=== PATIENT | female | born 1965 | race Caucasian/White ===

== ENCOUNTER 2024-02-06 15:46 | Emergency (ER) | payer MEDICARE, SELFPAY ==
[2024-02-06 15:49] VITALS: BP 118/84; PULSE 88; RESP 16; TEMP 37.4; O2SAT 96
[2024-02-06 15:51] VITALS: BMI 39.1
--- NOTE | 2024-02-06 17:36 | EDS_ITS ---
HPI HPI - GI History of Present Illness Chief Complaint: Abd Pain Informant: patient Abdominal Pain/Flank Pain Onset: Days (4) Context: Gradual Onset Timing: Continuous Quality: Stabbing Location: RLQ Worsened by: Movement (Bending, sitting) Relieved by: Nothing Nausea/Vomiting/Emesis GI Symptom: Positive for Nausea and Vomiting Quality: Positive for Nonbilious; Negative for Blood streaks, Coffee ground or Hematemesis Diarrhea/Melena/Hematochezia GI Symptom: Positive for Diarrhea; Negative for Melena or Hematochezia Associated Symptoms Associated Symptoms: Negative for Dysuria, Frequency or Hematuria Narrative Narrative: Patient presents with abdominal pain that has been getting worse over the last 4 days. Patient states it is gradually gotten worse. Patient states that this became severe over the past 2 days. Patient states her pain is mainly over the right lower abdomen. Patient states it is worse with bending and with sitting. Patient also states that when she sits to urinate she has pressure and some hesitancy. Patient denies any dysuria however. Patient does admit to some nausea, vomiting, and decreased appetite. Patient denies any hematemesis or coffee-ground emesis. Patient also admits to some diarrhea. Patient denies any melena or hematochezia. Patient states she had a fever of 99.3 at home. Patient does admit to a cough. Patient denies any chest pain. Patient denies any shortness of breath. [facility] Medical History (Updated 02/06/24 @ 22:[address] Jason Ivory, DO) Chronic back pain Gastroparesis Restless leg syndrome Neuropathy Diabetes Home Medications ?Medication ?Instructions ?Recorded ?Last Taken ?Type ciprofloxacin HCl 500 mg tablet 500 mg PO BID #20 TABLETS 02/06/24 Unknown Rx metronidazole 500 mg tablet 500 mg PO Q6H #40 tabs 02/06/24 Unknown Rx Allergy/AdvReac Type Severity Reaction Status Date / Time hydromorphone (From Dilaudid) Allergy Severe Chest Verified 02/06/24 15:49 tightness shellfish derived Allergy Severe Anaphylaxis Verified 02/06/24 15:49 codeine Allergy Intermediate Shortness Verified 02/06/24 15:49 of breath exenatide (From Bydureon) Allergy Intermediate Swelling Verified 02/06/24 15:49 ibuprofen Allergy Intermediate Shortness Verified 02/06/24 15:49 of breath Surgical History History of carpal tunnel surgery of right wrist History of carpal tunnel surgery of left wrist H/O: hysterectomy Social History Smoking Status: Current every day smoker tobacco type: cigarettes ROS ROS ED Constitutional Constitutional ED: Reports fever(s) and subjective; Denies chills Eyes Eyes: Denies blurry vision or change in vision ENT ENT ED: Denies rhinorrhea or sore throat Cardiovascular Cardiovascular: Denies chest pain or palpitations Respiratory/Chest Respiratory/Chest: Reports cough; Denies dyspnea Gastrointestinal Gastrointestinal: Reports abdominal pain, diarrhea, nausea and vomiting; Denies melena Genitourinary Genitourinary ED: Denies dysuria or hematuria Musculoskeletal Musculoskeletal: Reports back pain; Denies neck pain Integumentary Denies abscess or rash Neurologic Neurologic: Reports headache(s); Denies weakness Allergic/Immunologic Allergic/Immunologic ED: Denies mouth swelling or urticaria EXAM Physical Exam Const Vital Signs: 02/06/24 15:49 02/06/24 17:46 02/06/24 19:00 Temperature 99.3 F H Temperature Source Oral Pulse Rate 88 84 79 Respiratory Rate 16 16 Blood Pressure 118/84 H 120/68 117/80 Blood Pressure Mean 95 85 92 Pulse Ox 96 100 Oxygen Delivery Method Room Air 02/06/24 21:00 Temperature Temperature Source Pulse Rate 89 Respiratory Rate Blood Pressure 124/79 H Blood Pressure Mean 94 Pulse Ox Oxygen Delivery Method Positive well nourished and well developed General Appearance ED: well developed and NAD HEENT Reports moist mucous membranes Neck supple and no JVD Resp normal respiratory effort and clear to auscultation bilaterally Cardio regular rate and regular rhythm GI non-distended Palpation: soft and tender RLQ, periumbilical, suprapubic and Rovsing's sign; Negative for guarding or rebound tenderness present Neuro CN's II-XII intact bilaterally, moves all extremities and no sensory deficits noted Sensorium / Orientation: alert Motor Exam: strength 5/5 throughout Psych mental status grossly normal and thought process normal Skin no wounds MDM MDM MDM Narrative Medical decision making narrative: Differential diagnosis includes appendicitis, urinary tract infection, ureteral calculus, pyelonephritis, gastroenteritis, mesenteric adenitis, diverticulitis, and viral illness. CBC will be obtained to assess for leukocytosis and anemia. Comprehensive metabolic profile will be obtained to assess for hepatic function, renal function, and electrolyte abnormality. Urinalysis will be ordered to assess for urinary tract infection and hematuria. CT scan of the abdomen and pelvis will be obtained to assess for appendicitis, diverticulitis, bowel obstruction, and perforation. Lab Data Attestation: I reviewed the patient's lab results. Lab results narrative: CBC was reviewed and was essentially within normal limits. Comprehensive metabolic profile was reviewed. Creatinine was slightly elevated at 1.16. Glucose was mildly elevated at 156. The remainder was essentially within normal limits. Urinalysis was reviewed. There is no evidence of urinary tract infection or hematuria. Labs: Laboratory Results - last 24 hr 02/06/24 02/06/24 17:14 18:00 WBC 10.1 RBC 4.36 Hgb 14.0 Hct 40.8 MCV 93.6 MCH 32.1 H MCHC 34.3 RDW Std Deviation 46.5 H RDW Coeff of Love 13.5 Plt Count 268 MPV 12.0 Immature Gran % (Auto) 0.500 Neut % (Auto) 59.6 Lymph % (Auto) 28.6 [place] % (Auto) 10.2 H Eos % (Auto) 0.6 Baso % (Auto) 0.5 Absolute Neuts (auto) 6.1 Absolute Lymphs (auto) 2.90 Nucleated RBC % 0 Sodium 137 Potassium 3.6 Chloride 108 H Carbon Dioxide 25.0 Anion Gap 4 L BUN 9 Creatinine 1.16 H Estim Creat Clear Calc 65.57 Est GFR (MDRD) Af Amer 62 Est GFR (MDRD) Non-Af 51 L BUN/Creatinine Ratio 7.8 L Glucose 156 H Calcium 9.5 Total Bilirubin 0.70 AST 11 L ALT 27 Alkaline Phosphatase 72 Total Protein 7.6 Albumin 3.5 Globulin 4.1 Albumin/Globulin Ratio 0.9 Urine Color Yellow Urine Clarity Sl. Cloudy Urine pH 7.0 Ur Specific Thompson 1.010 Urine Protein Negative Urine Glucose (UA) Normal Urine Ketones Negative Urine Occult Blood Negative Urine Nitrite Negative Urine Bilirubin Negative Urine Urobilinogen 1 H Ur Leukocyte Esterase 25 H Urine RBC 0 SEEN Urine WBC 0-5 SEEN Ur Squamous Epith Cells 0-5 SEEN Amorphous Sediment 1+ PHOS Urine Bacteria RARE Urine Mucus 0 SEEN Radiography Diagnostic Testing: Clinical Impression(s) from Imaging Studies Abdomen/Pelvis CT 02/06/24 17:45 IMPRESSION: Acute diverticulitis of the ascending colon. No obstruction or abscess. Hepatomegaly. No biliary dilatation. Electronically Signed: Ricci Arana MD at 21:33 EDT , CT scan of the abdomen pelvis was obtained. There is acute diverticulitis of the ascending colon. There is no abscess or obstruction. There is no perforation noted. This was interpreted by the radiologist and was also independently reviewed by myself. Treatment and Re-Evaluation :: Patient was given a dose of Solu-Medrol and Benadryl due to her allergy to shellfish and the need for CT contrast. Patient was given morphine and Zofran. Patient was feeling better on reevaluation. Patient was advised of her findings. Patient was given a dose of Cipro and Flagyl here. Patient is given prescriptions for Cipro and Flagyl. Patient was instructed to follow-up with her primary care physician in 5 to 7 days. Patient was instructed to return if worse in any way. Patient understood and was agreeable with the plan. All questions were answered. Discharge Plan Triage Chief Complaint: Abd Pain ED Provider: Jason Ivory Dx/Rx/DC Orders Clinical Impression: Diverticulitis, Abdominal pain, right lower quadrant Instructions: ED Diverticulitis Prescriptions: New metronidazole 500 mg tablet 500 mg PO Q6H Qty: 40 0RF ciprofloxacin HCl 500 mg tablet 500 mg PO BID Qty: 20 0RF Primary Care Provider: Nathalia Leung Referrals: Nathalia Leung PA-C [Primary Care Provider] - 5-7 Days Print Language: Nepali Disposition Disposition: Home, Self Care
[2024-02-06 17:41] LABS: Absolute Neutrophil Count 6.1 X10^3/uL (2.0-7.7); Basophil# 0.05 X10^3/uL; Basophil% 0.5 % (0-1); Eosinophil# 0.06 X10^3/uL; Eosinophils% 0.6 % (0-5); Hematocrit 40.8 % (37-47); Lymphocyte % 28.6 % (19-41); Mean Corp Hgb Conc 34.3 g/dL (32-36); Mean Corpuscular Hgb 32.1 pg (27.0-32.0); Mean Corpuscular Volume 93.6 fL (81-99); Monocyte# 1.03 X10^3/uL; Monocyte% 10.2 % (0-10); NRBC Flagged by Analyzer 0 % (0-5); Neutrophil # 6.05 X10^3/uL (2.7-7.7); Neutrophil % 59.6 % (47-70); Platelet Count 268 K/mm3 (150-450); RBC Distribution Width CV 13.5 % (11.6-14.6); RBC Distribution Width SD 46.5 fl (35.1-43.9); Red Blood Count 4.36 M/mm3 (4.2-5.4); White Blood Count 10.1 K/mm3 (4.4-11.0)
[2024-02-06 17:44] LABS: POSITIVE COUNT NO; POSITIVE DIFFERENTIAL NO; POSITIVE MORPHOLOGY NO
--- NOTE | 2024-02-06 17:45 | CT_ITS ---
STUDY: CT ABDOMEN AND PELVIS WITH CONTRAST REASON FOR EXAM: Female, 59 years old. Abdominal pain -- RADIATION DOSAGE (If Supplied By Facility): CTDIvol = ( 16.88 ) mGy, DLP = ( 1321.38 ) mGycm TECHNIQUE: Transaxial images were obtained from the dome of the diaphragm to the symphysis pubis without oral contrast. IV 100mL [id number]-[id number] was administered. Sagittal and coronal images were reconstructed. Individualized dose optimization techniques were used for this CT. COMPARISON: None. FINDINGS: The visualized lung bases are unremarkable. The visualized portions of the heart are within normal limits. There is hepatomegaly with diffuse hepatic enlargement. Normal gallbladder and extrahepatic biliary system. Normal spleen. Normal pancreas. There is 3.1 cm left adrenal adenoma. Normal right kidney. Normal left kidney. Normal visualized stomach. Normal small intestine. There is diverticulosis, with thickening of the right colon wall, and right lower quadrant pericolonic inflammation changes consistent with acute diverticulitis. The appendix is visualized and appears normal. There is diffuse atherosclerotic calcification of the abdominal aorta, without a demonstrated aneurysm. Normal inferior vena cava. Normal retroperitoneum. Normal urinary bladder. There is absence of the uterus consistent with a prior hysterectomy. There is no free fluid in the abdomen or pelvis. Normal abdominal wall. Normal osseous structures. CT/Abdomen/Pelvis W IV Cont ONLY IMPRESSION: Acute diverticulitis of the ascending colon. No obstruction or abscess. Hepatomegaly. No biliary dilatation. Electronically Signed: Ricci Arana MD at 21:33 EDT ,
[2024-02-06 17:46] VITALS: BP 120/68; PULSE 84
[2024-02-06 17:51] LABS: ALB/GLOB Ratio 0.9 RATIO (0.9-2.4); AST(SGOT) 11 U/L (15-37); Alanine Aminotransfer ALT/SGPT 27 U/L (13-56); Albumin, Serum 3.5 g/dL (3.2-5.0); Alkaline Phosphatase 72 U/L (45-117); Anion Gap 4 (5-15); BUN 9 mg/dL (7-18); BUN/Creat Ratio 7.8 RATIO (10-20); Calcium,Total 9.5 mg/dL (8.5-10.1); Chloride 108 mmol/L (98-107); Creatinine, Serum 1.16 mg/dL (0.55-1.02); EST Glomerular Filtration Rate 51 mL/min (>60); Est Glom Filt Rate - Afr Amer 62 mL/min (>60); Estimated Creatinine Clearance 65.57 ml/min; Globulin 4.1 g/dL (2.2-4.2); Glucose 156 mg/dL (74-106); Potassium 3.6 mmol/L (3.5-5.1); Protein, Total 7.6 g/dL (6.4-8.2); Sodium Level 137 mmol/L (136-145)
[2024-02-06] MEDS: Ondansetron 4 MG/2 ML Vial IV (18:05)
[2024-02-06] MEDS: Morphine 4 MG/ML Syringe IV (18:06)
[2024-02-06] MEDS: MethylPREDNISolone 125 MG/2 ML Vial 80 MG IV (18:08)
[2024-02-06] MEDS: DiphenhydrAMINE 50 MG/ML Syringe 25 MG IV (18:08)
[2024-02-06 18:16] LABS: Mucous, Urine 0 SEEN /hpf (<or=2+); Red Blood Cells-Urine 0 SEEN /hpf (0-5)
[2024-02-06 18:20] LABS: Color, Urine Yellow (Yellow); Glucose, Dipstick Normal (Normal); Ketone-Dipstick Negative (Negative); Leukocyte Esterase-Dipstick 25 /ul (Negative); Nitrite-Dipstick Negative (Negative); Occult Blood-Urine Negative /ul (Negative); Protein-Dipstick Negative (Negative); Urine Bilirubin Dipstick Negative (Negative); Urine Clarity Sl. Cloudy (Clear); Urine Urobilinogen 1 mg/dl (Normal)
[2024-02-06 18:33] LABS: Amorphous Sediment 1+ PHOS; Bacteria RARE /hpf (None Seen); Squamous Epithelial Cells - UA 0-5 SEEN /hpf (5-10); White Blood Cells 0-5 SEEN /hpf (0-5)
[2024-02-06 19:00] VITALS: BP 117/80; PULSE 79; RESP 16; O2SAT 100
[2024-02-06 21:00] VITALS: BP 124/79; PULSE 89
[2024-02-06] MEDS: Ciprofloxacin 500 MG Tablet PO (22:35)
[2024-02-06] MEDS: metroNIDAZOLE 500 MG Tablet PO (22:35)
== END 2024-02-06 22:48 | disposition home or self-care (01) ==
PROVIDERS: Emergency Provider Emergency Medicine; PCP Physician Assistant; Referring Provider Emergency Medicine; Visit Provider Emergency Medicine
DX: K57.32 Diverticulitis of large intestine without perforation or abscess without bleeding (principal); F17.210 Nicotine dependence, cigarettes, uncomplicated
CPT/HCPCS: 74177; 80053; 81001; 85025; 96374; 96375; 99284; Q9967; A4216; J2405